=== PATIENT | male | born 1985 | race Hispanic/Latino ===

== ENCOUNTER 2018-05-27 17:55 | Emergency (ER) | payer SELFPAY | END 2018-05-27 19:26 | disposition home or self-care (01) | LOC: EDH 17:55 | DX: J02.9 Acute pharyngitis, unspecified (principal); K21.9 Gastro-esophageal reflux disease without esophagitis | CPT/HCPCS: 87880 ==

== ENCOUNTER 2020-04-12 15:32 | Emergency (ER) | payer MEDICAID, OTHER, SELFPAY | END 2020-04-12 17:49 | disposition home or self-care (01) | LOC: EDH 15:32 | DX: S09.90XA Unspecified injury of head, initial encounter (principal); M62.838 Other muscle spasm; H81.399 Other peripheral vertigo, unspecified ear; K21.9 Gastro-esophageal reflux disease without esophagitis; Z72.0 Tobacco use; X58.XXXA Exposure to other specified factors, initial encounter; Y93.89 Activity, other specified; Y92.098 Other place in other non-institutional residence as the place of occurrence of the external cause; Y99.8 Other external cause status | CPT/HCPCS: 70450 ==